=== PATIENT | male | born 1995 | race African-American/Black ===

== ENCOUNTER 2017-01-20 01:40 | Emergency (ER) | payer MEDICAID ==
[~2017-01-20] VITALS: Ht 175.3 cm; Wt 75.0 kg
[2017-01-20 02:10] VITALS: BP 137/76
== END 2017-01-20 04:40 | disposition left against medical advice (07) ==
LOC: ER 01:40
DX: R05 Cough (principal); Z53.21 Procedure and treatment not carried out due to patient leaving prior to being seen by health care provider

== ENCOUNTER 2017-08-19 22:31 | Emergency (ER) | payer MEDICAID ==
[~2017-08-19] VITALS: Ht 175.3 cm; Wt 77.0 kg
[2017-08-20] MEDS ORDERED: IBUPROFEN 600MG TABLET PO STA (00:23)
[2017-08-20] MEDS ORDERED: BACITRACIN ZINC OINT UDPKT TOP ONE (00:30)
[2017-08-20] MEDS ORDERED: LIDOCAINE HCL/PF 1% 2ML VIAL INFIL ONE (00:30)
[2017-08-20] MEDS ORDERED: LIDOCAINE HCL/PF 1% 10 MG/ML 5ML VIAL IJ NR (00:45)
[2017-08-20 01:29] VITALS: BP 135/72
== END 2017-08-20 01:28 | disposition home or self-care (01) ==
LOC: ER 22:31
DX: L02.412 Cutaneous abscess of left axilla (principal)
CPT/HCPCS: 10060; 99283; J3490; X7700; Z7610

== ENCOUNTER 2021-01-02 19:38 | Emergency (ER) | payer MEDICAID ==
[~2021-01-02] VITALS: Ht 175.3 cm; Wt 87.5 kg
[2021-01-02] MEDS ORDERED: IPRATROPIUM BROMIDE (0.02%) 0.5MG/2.5ML NEB HHN STA (22:10)
[2021-01-03] MEDS: ALBUTEROL (0.083%) 2.5MG/3ML NEB HHN SCH ×3 (00:20→00:37)
[2021-01-03] MEDS ORDERED: ATROV INH (00:20)
[2021-01-03] MEDS ORDERED: ALBU90AE INH (00:20)
[2021-01-03 01:26] VITALS: BP 126/71
== END 2021-01-03 01:29 | disposition home or self-care (01) ==
LOC: ER 19:38
DX: J45.901 Unspecified asthma with (acute) exacerbation (principal)
CPT/HCPCS: 93005; 99283; Z7610

== ENCOUNTER 2021-02-26 23:42 | Emergency (ER) | payer MEDICAID, OTHER ==
[~2021-02-26] VITALS: Ht 175.3 cm; Wt 81.6 kg
[~2021-02-26 23:42] MED LIST: ALBU90AE INH; ATROV INH
[2021-02-26 23:50] VITALS: BP 160/81
[2021-02-27] MEDS ORDERED: IPRATROPIUM BROMIDE (0.02%) 0.5MG/2.5ML NEB HHN STA (00:07)
[2021-02-27] MEDS ORDERED: ALBUTEROL (0.083%) 2.5MG/3ML NEB HHN STA (00:07)
[2021-02-27] MEDS ORDERED: PREDNISONE 20MG TABLET PO STA (00:07)
[2021-02-27] MEDS ORDERED: P20 MT (02:03)
== END 2021-02-27 02:18 | disposition home or self-care (01) ==
LOC: ER 23:42
DX: J45.901 Unspecified asthma with (acute) exacerbation (principal); Z88.0 Allergy status to penicillin
CPT/HCPCS: 94640; 99283; J7512; Z7610

== ENCOUNTER 2021-03-20 05:05 | Emergency (ER) | payer MEDICAID, OTHER ==
[~2021-03-20] VITALS: Ht 175.3 cm; Wt 85.0 kg
[~2021-03-20 05:05] MED LIST changes: +P20 MT
[2021-03-20] MEDS ORDERED: ALBUTEROL (0.083%) 2.5MG/3ML NEB HHN ONE (05:30)
[2021-03-20] MEDS ORDERED: PREDNISONE 20MG TABLET PO ONE (05:30)
[2021-03-20] MEDS ORDERED: P50 MT (06:39)
[2021-03-20 06:55] VITALS: BP 138/93
== END 2021-03-20 07:01 | disposition home or self-care (01) ==
LOC: ER 05:05
DX: J45.901 Unspecified asthma with (acute) exacerbation (principal); Z88.0 Allergy status to penicillin; Z79.899 Other long term (current) drug therapy
CPT/HCPCS: 94640; 99283; J7512

== ENCOUNTER 2022-01-11 21:01 | Emergency (ER) | payer MEDICAID, OTHER ==
[~2022-01-11] VITALS: Ht 175.3 cm; Wt 91.0 kg
[~2022-01-11 21:01] MED LIST changes: +P50 MT
[2022-01-11 21:18] VITALS: BP 127/78
[2022-01-11 23:13] LABS: BASOPHILS % 0.4 % (0.0-2.0); EOSINOPHILS % 1.7 % (0.0-5.0); HEMATOCRIT. 43.7 % (42.0-52.0); HEMOGLOBIN. 14.7 g/dL (14.0-18.0); LYMPHOCYTES % 35.9 % (20.0-50.0); MEAN CORPUSCULAR HEMOGLOBIN 33.1 pg (28.0-32.0); MEAN CORPUSCULAR VOLUME 98.3 fL (80.0-94.0); MEAN PLATELET VOLUME 8.1 fl (7.4-10.4); MONOCYTES % 9.9 % (2.0-8.0); NEUTROPHILS % 52.1 % (40.0-76.0); PLATELET 248 x1000/uL (130-400); RED BLOOD CELL COUNT 4.44 mill/uL (4.7-6.1)
[2022-01-11 23:44] LABS: CHLORIDE 106 mEq/L (98-107)
[2022-01-12] MEDS ORDERED: IBUP-2029 MT (00:53)
== END 2022-01-12 02:10 | disposition home or self-care (01) ==
LOC: ER 21:01
DX: I31.9 Disease of pericardium, unspecified (principal); J45.909 Unspecified asthma, uncomplicated; Z88.3 Allergy status to other anti-infective agents
CPT/HCPCS: 36415; 71045; 80053; 83880; 84484; 85025; 93005; 99285

== ENCOUNTER 2022-01-27 20:28 | Emergency (ER) | payer BC, OTHER ==
[~2022-01-27] VITALS: Ht 175.3 cm; Wt 91.0 kg
[~2022-01-27 20:28] MED LIST changes: +IBUP-2029 MT
[2022-01-28 00:45] VITALS: BP 159/98
[2022-01-28] MEDS ORDERED: IBUPROFEN 600MG TABLET PO ONE (00:45)
[2022-01-28] MEDS ORDERED: IBUP-2029 MT (00:59)
== END 2022-01-28 01:11 | disposition home or self-care (01) ==
LOC: ER 20:28
DX: I31.9 Disease of pericardium, unspecified (principal); R94.31 Abnormal electrocardiogram [ECG] [EKG]; J45.909 Unspecified asthma, uncomplicated; Z88.3 Allergy status to other anti-infective agents
CPT/HCPCS: 93005; 99283